=== PATIENT | female | born 1960 | race Caucasian/White ===

== ENCOUNTER 2017-10-13 18:00 | Emergency (ER) | payer MEDICARE, OTHER ==
--- NOTE | 2017-10-13 18:17 | ER Report ---
History and Physical Time Seen By MD: 18:12 Hx. of Stated Complaint: ]WITNESSED SEIZURE AT [facility],15 -45 SECONDS OF GRAND MAL SEIZURE. PT ALONE AND APPARENTLY FROM OOT. SHE IS POST ICTAL AND DOES NOT ANSWER ANY QUESTIONS. PT HIT HEAD ON FLKOOR AND HAS A GOOSE EGG OCCIPITALLY HPI/ROS CHIEF COMPLAINT: seizure, altered mental status HISTORY OF PRESENT ILLNESS: This is a 57 year old female. She had a witnessed seizure at [facility] today. EMS brought her here to the ER. She is moaning and complaining of headache. She has a hematoma on her occipital scalp with bleeding. She is nauseated and having vomiting.She is not able to communicate otherwise other than a few yes or no answers. She is able to follow some commands but not all. No other history at this time. Her arrived a little later and I was able to talk to him. He indicates that she has seizures every few years. They are planning on getting her into her neurologist upon return to [place]. She normally has anywhere from 30-120 minutes of confusion after a seizure, so her current state is not atypical for her after a seizure. REVIEW OF SYSTEMS: Unable to obtain otherwise. Allergies: Coded Allergies: Penicillins (Verified Allergy, Unknown, 10/13/17) Home Meds Reported Medications Aspirin/Acetaminophen/Caffeine (EXCEDRIN EXTRA STRENGTH CAPLET) 1 Each Tablet, 1 EACH PO PRN 10/13/17 Duloxetine Hcl (CYMBALTA) 20 Mg Capcr, PO QDAY, #5 CAP 10/13/17 Unable To Obtain Past Medical: Unable to Obtain/Update Reviewed Nurses Notes: Yes Constitutional Vital Sign - Last 24 Hours 10/13/17 10/13/17 10/13/17 10/13/17 18:00 18:02 18:04 18:09 Temp 98.8 Pulse ??? 93 Resp 20 B/P (MAP) 130/72 128/75 (92) Pulse Ox 84 89 O2 Delivery Room Air O2 Flow Rate 2.0 10/13/17 10/13/17 10/13/17 10/13/17 18:15 18:30 18:45 18:50 Pulse 83 93 79 61 Resp 7 8 10 24 B/P (MAP) 130/91 (104) Pulse Ox 97 10/13/17 10/13/17 10/13/17 10/13/17 20:10 20:25 20:30 20:40 Pulse 92 65 63 Resp 30 23 5 B/P (MAP) 152/86 (108) Pulse Ox 100 98 100 10/13/17 10/13/17 10/13/17 10/13/17 20:45 21:00 21:15 21:30 Pulse 67 ??? 75 ??? Resp 10 18 10 10 B/P (MAP) 147/84 (105) 131/84 (100) Pulse Ox 98 94 100 100 10/13/17 10/13/17 10/13/17 10/13/17 21:35 21:50 22:00 22:05 Pulse 85 82 71 Resp 19 14 23 B/P (MAP) 138/82 (100) Pulse Ox 100 100 100 10/13/17 10/13/17 10/13/17 10/13/17 22:14 22:19 22:25 22:30 Pulse 69 79 Resp 15 15 B/P (MAP) 138/79 (98) Pulse Ox 100 100 O2 Flow Rate 1.0 10/13/17 10/13/17 10/13/17 10/13/17 22:34 22:49 22:54 23:00 Pulse 73 80 78 Resp 26 13 13 B/P (MAP) 142/77 (98) Pulse Ox 100 10/13/17 23:09 Pulse 77 Resp 13 Physical Exam General Appearance: The patient is having some sedation and difficulty post- ictal, but is able to follow most commands, but unable to answer questions for me other than some brief yes or no questions. No immediate need for airway protection. Head: Hematoma with bleeding occipital scalp. Eyes: Pupils are equal, round. Reactive to light. No pallor, injection or icterus. Extraocular movements are intact. ENT: Mucous membranes are moist. Normal oral mucosa. Posterior oropharynx is normal. Normal tympanic membranes and canals. Neck: Supple and non tender. Respiratory: Lungs are clear to auscultation. Cardiovascular: Regular rate and rhythm. No murmurs, gallops or rubs. Normal capillary refill. No edema. Gastrointestinal: Abdomen is soft, with no apparent tenderness. Nondistended. Normal active bowel sounds. Neurological: Oriented to self only at this time. Unable to perform full neuro exam at this time. She is moving all extremities. No facial droop or other focal deficits noted. Skin: Warm and dry. Musculoskeletal: Extremities are nontender. No tenderness in palpation of the cervical, thoracic and lumbar spine. DIFFERENTIAL DIAGNOSIS: After history and physical exam, differential diagnosis was considered for a seizure including but not limited to electrolyte abnormality, alcohol withdrawal, medication noncompliance, head injury, and breakthrough seizure. Will evaluate for trauma associated with seizure as well, mainly looking at head and neck, but will do a segura-CT scan due to trauma. Medical Decision Making Data Points Result Diagram: 10/13/17 1750 10/13/17 175 Laboratory Hematology Test 10/13/17 17:50 Red Blood Count 4.04 M/uL (4.17-5.56) Mean Corpuscular Volume 96.5 fL (80.0-96.0) Mean Corpuscular Hemoglobin 33.8 pg (26.0-33.0) Mean Corpuscular Hemoglobin Concent 35.0 g/dL (32.0-36.0) Red Cell Distribution Width 13.9 % (11.5-14.5) Mean Platelet Volume 9.0 fL (7.2-11.1) Neutrophils (%) (Auto) 51.0 % (39.4-72.5) Lymphocytes (%) (Auto) 36.8 % (17.6-49.6) Monocytes (%) (Auto) 9.8 % (4.1-12.4) Eosinophils (%) (Auto) 1.7 % (0.4-6.7) Basophils (%) (Auto) 0.7 % (0.3-1.4) Nucleated RBC Relative Count (auto) 0.0 /100WBC Neutrophils # (Auto) 3.8 K/uL (2.0-7.4) Lymphocytes # (Auto) 2.8 K/uL (1.3-3.6) Monocytes # (Auto) 0.7 K/uL (0.3-1.0) Eosinophils # (Auto) 0.1 K/uL (0.0-0.5) Basophils # (Auto) 0.1 K/uL (0.0-0.1) Nucleated RBC Absolute Count (auto) 0.00 K/uL Prothrombin Time 12.9 seconds (12.0-14.4) Prothromb Time International Ratio 0.97 Activated Partial Thromboplast Time 26 seconds (23-35) Sodium Level 141 mmol/L (137-145) Potassium Level 2.7 mmol/L (3.5-5.0) Chloride Level 102 mmol/L (98-107) Carbon Dioxide Level 24 mmol/L (22-31) Blood Urea Nitrogen 5 mg/dl (7-18) Creatinine 0.70 mg/dl (0.52-1.04) Glomerular Filtration Rate Calc > 60.0 Random Glucose 72 mg/dl (75-110) Lactate 1.3 mmol/L (0.7-2.1) Calcium Level 9.6 mg/dl (8.4-10.2) Total Bilirubin 0.4 mg/dl (0.2-1.3) Aspartate Amino Transf (AST/SGOT) 45 U/L (0-35) Alanine Aminotransferase (ALT/SGPT) 46 U/L (0-56) Alkaline Phosphatase 67 U/L (0-126) Troponin I < 0.012 ng/ml Total Protein 7.4 gm/dl (6.3-8.2) Albumin 4.4 g/dl (3.5-5.0) Chemistry Test 10/13/17 17:50 White Blood Count 7.5 k/uL (4.5-11.0) Red Blood Count 4.04 M/uL (4.17-5.56) Hemoglobin 13.6 g/dL (12.0-16.0) Hematocrit 39.0 % (34.0-47.0) Mean Corpuscular Volume 96.5 fL (80.0-96.0) Mean Corpuscular Hemoglobin 33.8 pg (26.0-33.0) Mean Corpuscular Hemoglobin Concent 35.0 g/dL (32.0-36.0) Red Cell Distribution Width 13.9 % (11.5-14.5) Platelet Count 219 K/uL (150-450) Mean Platelet Volume 9.0 fL (7.2-11.1) Neutrophils (%) (Auto) 51.0 % (39.4-72.5) Lymphocytes (%) (Auto) 36.8 % (17.6-49.6) Monocytes (%) (Auto) 9.8 % (4.1-12.4) Eosinophils (%) (Auto) 1.7 % (0.4-6.7) Basophils (%) (Auto) 0.7 % (0.3-1.4) Nucleated RBC Relative Count (auto) 0.0 /100WBC Neutrophils # (Auto) 3.8 K/uL (2.0-7.4) Lymphocytes # (Auto) 2.8 K/uL (1.3-3.6) Monocytes # (Auto) 0.7 K/uL (0.3-1.0) Eosinophils # (Auto) 0.1 K/uL (0.0-0.5) Basophils # (Auto) 0.1 K/uL (0.0-0.1) Nucleated RBC Absolute Count (auto) 0.00 K/uL Prothrombin Time 12.9 seconds (12.0-14.4) Prothromb Time International Ratio 0.97 Activated Partial Thromboplast Time 26 seconds (23-35) Glomerular Filtration Rate Calc > 60.0 Lactate 1.3 mmol/L (0.7-2.1) Calcium Level 9.6 mg/dl (8.4-10.2) Total Bilirubin 0.4 mg/dl (0.2-1.3) Aspartate Amino Transf (AST/SGOT) 45 U/L (0-35) Alanine Aminotransferase (ALT/SGPT) 46 U/L (0-56) Alkaline Phosphatase 67 U/L (0-126) Troponin I < 0.012 ng/ml Total Protein 7.4 gm/dl (6.3-8.2) Albumin 4.4 g/dl (3.5-5.0) Coagulation Test 10/13/17 17:50 Prothrombin Time 12.9 seconds Prothromb Time International Ratio 0.97 Activated Partial Thromboplast Time 26 seconds EKG/Imaging EKG Interpretation 12 lead EKG: Rhythm: normal sinus rhythm, rate 89 [place]: normal QRS: normal ST segments: Nonspecific changes, no ST elevation or depression noted Imaging CT scan(s) obtained: non-contrast head, non-contrast cervical spine, chest/ abdomen/pelvis with IV contrast, thoracic spine reconstruction, lumbar spine reconstruction. Results: Head with evidence of subarachnoid bleed on the left without mass effect. No evidence of fracture. Cervical spine without evidence of fracture. Chest/abdomen/pelvis and the thoracic spines readings are pending at this time. The study was read by the radiologist and was discussed with me. I viewed the images myself on the PACS system. ED Course/Re-evaluation Clinical Indication for ER IV: Hydration, IV Access ED Course On re-evaluation after CT scans were performed, the patient is doing a little better. Still with nausea and headache. Difficulty in CT scan with nausea upon lying flat, so further nausea medicines were given including Zofran 4mg IV and then Reglan 10mg IV. She still has headache, and Fentanyl 50mcg IV was given. She is more alert and able to answer questions better. She still is not back to baseline according to her , but is able to answer questions a little better now. Labs show a low potassium, so a dose of 20mEq KCl was given as a rider in addition to a liter of normal saline. CT scans done, but delay in reading. My read shows what appears to be a subarachnoid bleed on the left. Was able to discuss this with radiology and verified this. She is having continued headache, but the nausea is better. She was given a second dose of Fentanyl 50mcg IV. Called and discussed the case with Dr. Miller and Dr. Stanley (trauma and neurosurgery) at [facility]. Dr. Stanley, neurosurgery was able to visualize the scan and was concerned on the appearance and recommended transfer for neurovascular care in [place]. Called and spoke to the trauma surgeon at [facility], Dr. White, who accepted the patient. Decision to Disposition Date: October 13, 2017 Decision to Disposition Time: 22:22 Transfer Facility Patient was transferred to [facility] via helicopter. The transfer was emergent, and was required because the capabilities of the receiving hospital. Consent for transfer was obtained from the patient and her Dr. White, trauma surgeon, has accepted the patient for an ER to ER transfer. See EMTALA for transfer orders. Depart Departure Latest Vital Signs Vital Signs Date Time Temp Pulse Resp B/P (MAP) Pulse Ox O2 Delivery O2 Flow Rate FiO2 10/13/17 23:09 77 13 10/13/17 23:00 142/77 (98) 10/13/17 22:34 100 10/13/17 22:25 1.0 10/13/17 18:02 98.8 Room Air Impression: Primary Impression: Subarachnoid hemorrhage Additional Impression: Seizure Condition: Condition Unchanged Disposition: XFER TO [facility] Problem Qualifiers KISHORE DOWNEY MD October 13, 2017 18:17
[2017-10-13] MEDS ORDERED: ONDANSETRON 4 MG/2 ML VIAL IVP ONE (18:30)
[2017-10-13] MEDS ORDERED: NS(*) 0.9% 1000 ML BAG 1,000 ML IV ONE (18:30)
[2017-10-13 18:33] LABS: PLATELET COUNT, AUTOMATED 219 K/uL (150-450)
--- NOTE | 2017-10-13 18:33 | EKG ---
FACILITY: [facility] PATIENT NAME: GRAEME BARAJAS : [id number] MR: [id number] V: [id number] EXAM DATE: ORDERING PHYSICIAN: KISHORE DOWNEY TECHNOLOGIST: LIZA Montoya Reason : SEIZURE Blood Pressure : / mmHG Vent. Rate : 089 BPM Atrial Rate : 089 BPM P-R Int : 192 ms QRS Dur : 116 ms QT Int : 386 ms P-R-T Axes : 102 -22 099 degrees QTc Int : 469 ms Normal sinus rhythm Anteroseptal infarct , age undetermined ST and T wave abnormality, consider lateral ischemia Abnormal ECG No previous ECGs available Confirmed by CADEN WAGNER ([id number]) on 10/14/2017 1:04:00 PM Referred By: NASREEN Confirmed By:CADEN WAGNER
[2017-10-13 18:39] LABS: INR 0.97
[2017-10-13] MEDS ORDERED: KCL (*) 20 MEQ/100 ML PREMIX 100 ML IV ONE (18:45)
[2017-10-13] MEDS ORDERED: IOPAMIDOL 76% 75 ML INFUS BTL 75 ML ONE (18:59)
[2017-10-13] MEDS ORDERED: ONDANSETRON 4 MG/2 ML VIAL ONE (19:03)
[2017-10-13] MEDS ORDERED: METOCLOPRAMIDE 10 MG/2 ML SDV IVP ONE (19:40)
[2017-10-13] MEDS ORDERED: fentaNYL CITR 100 MCG/2 ML AMP IVP ONE ×2 (20:45→21:50)
--- NOTE | 2017-10-13 22:30 | RADIOLOGY IMAGING REPORT ---
[place] [facility] [place] NAME: Juju Suh : 1960 MR: [id number] V: [id number] EXAM DATE: ORDERING PHYSICIAN: KSIHORE DOWNEY TECHNOLOGIST: Location: [facility] Patient: Juju Suh : 1960 Visit/Account:[id number] Date of Sevice: 10/13/2017 CT Head without contrast and CT Cervical spine: Indication: Seizure, fall, altered mental status. Head laceration. Comparison: None available Technique: CT head: Axial CT images were obtained through the brain from the skull base to the verte x without administration of IV contrast. Reformatted coronal and sagittal images were also obtained. Technique: CT cervical spine: Axial CT imaging of the cervical spine was performed. 2-D sagittal and coronal CT reformats were also obtained. One of the following dose optimization techniques was utilized in the performance of this exam: Autom ated exposure control; adjustment of the mA and/or kV according to the patient's size; or use of an i terative reconstruction technique. Specific details can be referenced in the facility's radiology C T exam operational policy. FINDINGS: CT head: Acute subarachnoid blood is seen throughout the sulci of the left cerebral hemisphere extending along the anterior falx and the lateral surface. This extends into the left-sided the cistern at the level of the debra with small amount of blood in the subarachnoid space posterior to the upper cervical cor d below the cerebellum on the right side. No definite subarachnoid blood is seen in the right sulci. There is no mass effect, midline shift or other indication of bleed. No hydrocephalus. Velazquez/white mat ter differentiation appears normal. Bony structures show no fractures or lesions. Large subcutaneous hematoma. Posterior right scalp. Sinuses and mastoids visualized are clear. CT cervical spine: The vertebral bodies are aligned. No fracture or facet dislocation. Mild osteopenia. No bony lesions. Mild degenerative changes are present including disc space, osteophytes and facet arthropathy. No emmanuel ny canal stenosis. Multilevel neural foramina narrowing is present. The endplates are maintained. No obvious disc herniation. Prevertebral soft tissues and strong soft tissues are unremarkable. Lung api mila are clear. IMPRESSION: 1. Acute subarachnoid hemorrhage in the left cerebral hemisphere extending into the cistern and into the spinal canal region inferior to the cerebellum. No appreciable mass effect or midline shift. No i ndication of skull fracture. Large hematoma in the posterior right scalp. 2. No acute osseous or acute alignment abnormality of the cervical spine. I called report to KISHORE DOWNEY at 10/13/2017 9:33 PM. Report Dictated By: Du Betancourt at 10/13/2017 9:21 PM Report E-Signed By: Du Betancourt at 10/13/2017 9:33 PM WSN:[id number]
--- NOTE | 2017-10-13 22:30 | RADIOLOGY IMAGING REPORT ---
FACILITY: [facility] PATIENT NAME: Juju Suh : 1960 MR: [id number] V: [id number] EXAM DATE: ORDERING PHYSICIAN: KISHORE DOWNEY TECHNOLOGIST: Location: [facility] Patient: Juju Suh : 1960 Visit/Account:[id number] Date of Sevice: 10/13/2017 CT Head without contrast and CT Cervical spine: Indication: Seizure, fall, altered mental status. Head laceration. Comparison: None available Technique: CT head: Axial CT images were obtained through the brain from the skull base to the verte x without administration of IV contrast. Reformatted coronal and sagittal images were also obtained. Technique: CT cervical spine: Axial CT imaging of the cervical spine was performed. 2-D sagittal and coronal CT reformats were also obtained. One of the following dose optimization techniques was utilized in the performance of this exam: Autom ated exposure control; adjustment of the mA and/or kV according to the patient's size; or use of an i terative reconstruction technique. Specific details can be referenced in the facility's radiology C T exam operational policy. FINDINGS: CT head: Acute subarachnoid blood is seen throughout the sulci of the left cerebral hemisphere extending along the anterior falx and the lateral surface. This extends into the left-sided the cistern at the level of the debra with small amount of blood in the subarachnoid space posterior to the upper cervical cor d below the cerebellum on the right side. No definite subarachnoid blood is seen in the right sulci. There is no mass effect, midline shift or other indication of bleed. No hydrocephalus. Velazquez/white mat ter differentiation appears normal. Bony structures show no fractures or lesions. Large subcutaneous hematoma. Posterior right scalp. Sinuses and mastoids visualized are clear. CT cervical spine: The vertebral bodies are aligned. No fracture or facet dislocation. Mild osteopenia. No bony lesions. Mild degenerative changes are present including disc space, osteophytes and facet arthropathy. No emmanuel ny canal stenosis. Multilevel neural foramina narrowing is present. The endplates are maintained. No obvious disc herniation. Prevertebral soft tissues and strong soft tissues are unremarkable. Lung api mila are clear. IMPRESSION: 1. Acute subarachnoid hemorrhage in the left cerebral hemisphere extending into the cistern and into the spinal canal region inferior to the cerebellum. No appreciable mass effect or midline shift. No i ndication of skull fracture. Large hematoma in the posterior right scalp. 2. No acute osseous or acute alignment abnormality of the cervical spine. I called report to KISHORE DOWNEY at 10/13/2017 9:33 PM. Report Dictated By: Du Betancourt at 10/13/2017 9:21 PM Report E-Signed By: Du Betancourt at 10/13/2017 9:33 PM WSN:[id number]
--- NOTE | 2017-10-13 22:31 | RADIOLOGY IMAGING REPORT ---
[place] [facility] [place] NAME: Juju Suh : 1960 MR: [id number] V: [id number] EXAM DATE: ORDERING PHYSICIAN: KISHORE DOWNEY TECHNOLOGIST: Location: [facility] Patient: Juju Suh : 1960 Visit/Account:[id number] Date of Sevice: 10/13/2017 EXAMINATION: CT chest with IV contrast CT abdomen with IV contrast CT pelvis with IV contrast Reconstruction images of the thoracic and lumbar spine. HISTORY: Seizure and fall. TECHNIQUE: Spiral scan was obtained through the chest, abdomen and pelvis during injection of nonio albino iodinated intravenous contrast. Sagittal and coronal reformatted images are also submitted. One of the following dose optimization techniques was utilized in the performance of this exam: Autom ated exposure control; adjustment of the mA and/or kV according to the patient's size; or use of an i terative reconstruction technique. Specific details can be referenced in the facility's radiology C T exam operational policy. CONTRAST: 75 mL of IV [id number]. COMPARISON: None. FINDINGS: CT THORAX: Lungs / pleura: Lungs show no focal consolidation, pleural effusion or pneumothorax. The right upper lobe does show a couple nodules, 4 mm and 3 mm on image #28 and 31 on series 4. No other discrete no dules. No focal interstitial opacities. Airways are clear. Mediastinum / duane: No abnormal density or enlarged lymph nodes. Heart / pericardium: Normal size. Minimal pericardial fluid. Vessels: Aorta shows no indication of aneurysm or dissection. The pulmonary arteries are grossly nor mal. Musculoskeletal / Body wall: The vertebral bodies are aligned and show no indication of compression fractures. Mild degenerative changes. No aggressive bony lesions. Possible hemangioma in the T6 verte bral body. The sternum is intact. The ribs show no discrete or displaced rib fractures. A couple old right rib fractures. No aggressive bony lesions. Chest wall shows no enlarged axillary lymph nodes or masses. The bilateral breast implants appear intact. CT ABDOMEN AND PELVIS: The liver, gallbladder, biliary system, pancreas, spleen, adrenal glands and kidneys are within elliot l limits without discrete focal abnormality. Pelvic structures: Negative. Bowel: The visualized gastrointestinal tract, including the appendix, within normal limits but the st omach is unremarkable. Peritoneum / retroperitoneum / mesenteries: No free air, fluid collections or areas of inflammation. Tiny bit of free fluid in pelvis nonspecific but most likely physiologic. Vessels: Negative. Musculoskeletal / Body wall: No indication of acute fracture. The vertebral bodies show no compressio ns. Mild degenerative change seen lower lumbar spine. No aggressive bony lesions. Lymph node assessment: Negative. Reconstructed Images of the Thoracic and Lumbar Spine: The vertebral bodies of the thoracic and lumbar spine are aligned. No compression fractures or aggres sive bony lesions. Possible hemangioma in the T6 vertebral body and the T4 vertebral body. The thorac ic spine does show mild degenerative anterior osteophytes without other posterior degenerative change s. No indication of bony canal stenosis or appreciable foraminal narrowing. The disks show no obvious herniations. The endplates are maintained. Small calcification posterior to the disc at T6-7 without significant sequelae. The lumbar spine shows mild degenerative changes at L5-S1 including disc space narrowing, endplate changes, osteophytes and facet arthropathy. Mild broad-based disc bulge. No appr eciable or significant canal stenosis. Mild neural foramina narrowing bilaterally at this level. The remaining vertebral bodies show no significant degenerative changes or appreciable disc herniations w ith possible mild broad-based disc bulge at L4-5 without significant sequelae. The endplates are main tained. IMPRESSION: 1. No indication of acute abnormality or traumatic injury to the chest, abdomen or pelvis. 2. The thoraci and lumbar spine shows no acute abnormality with mild degenerative changes as describ ed above. 3. Minimal pericardial fluid, nonspecific at this time.4. Right lung nodules, largest 4 mm. These are nonspecific and could be postinflammatory. Suggest follow-up per Fleischner guidelines described [place]. FLEISCHNER SOCIETY FOLLOW-UP GUIDELINES FOR NEWLY DETECTED INCIDENTAL NODULES IN PERSONS 35 YEARS OF AGE OR OLDER. *THESE RECOMMENDATIONS DO NOT APPLY TO LUNG CANCER SCREENING, PATIENTS WITH IMMUNOSUPPRESSION , OR PA TIENTS WITH KNOWN PRIMARY MALIGNANCY. MULTIPLE SOLID NODULES If largest nodule size is less than 6 mm: Low risk patient - no follow up needed High risk patient - Optional CT at 12 months. If largest nodule size is 6-8 mm: Low risk patient - follow up CT at 3-6 months, then consider CT at 18-24 months if no change. High risk patient - follow up CT at 3-6 months, then CT at 18-24 months if no change. If largest nodule size is greater than 8 mm: Low risk patient - follow up CT at 3-6 months, then consider CT at 18-24 months High risk patient - follow up CT at 3-6 months, then at 18-24 months LOW RISK PATIENT: Minimal or absent history of tobacco use and of other known risk factors. HIGH RISK PATIENT: Tobacco use, family history of lung cancer, upper pulmonary lobe location of nodul e, presence of emphysema, pulmonary fibrosis, older age. Estrella H, Iza DP, Cash AMADO, et al. Guidelines for Management of Incidental Pulmonary Nodules Dete cted on CT Images: From the Fleischner Society 2017. Radiology. Report Dictated By: Du Betancourt at 10/13/2017 9:35 PM Report E-Signed By: Du Betancourt at 10/13/2017 9:58 PM WSN:[id number]
--- NOTE | 2017-10-13 22:31 | RADIOLOGY IMAGING REPORT ---
FACILITY: [facility] [place] PATIENT NAME: Juju Suh : 1960 MR: [id number] V: [id number] EXAM DATE: ORDERING PHYSICIAN: KISHORE DOWNEY TECHNOLOGIST: [place] [facility] [place]ju [place]h : 1960 Visit/Account:[id number] Date of Sevice: 10/13/2017 EXAMINATION: CT chest with IV contrast CT abdomen with IV contrast CT pelvis with IV contrast Reconstruction images of the thoracic and lumbar spine. HISTORY: Seizure and fall. TECHNIQUE: Spiral scan was obtained through the chest, abdomen and pelvis during injection of nonio albino iodinated intravenous contrast. Sagittal and coronal reformatted images are also submitted. One of the following dose optimization techniques was utilized in the performance of this exam: Autom ated exposure control; adjustment of the mA and/or kV according to the patient's size; or use of an i terative reconstruction technique. Specific details can be referenced in the facility's radiology C T exam operational policy. CONTRAST: 75 mL of IV [id number]. COMPARISON: None. FINDINGS: CT THORAX: Lungs / pleura: Lungs show no focal consolidation, pleural effusion or pneumothorax. The right upper lobe does show a couple nodules, 4 mm and 3 mm on image #28 and 31 on series 4. No other discrete no dules. No focal interstitial opacities. Airways are clear. Mediastinum / duane: No abnormal density or enlarged lymph nodes. Heart / pericardium: Normal size. Minimal pericardial fluid. Vessels: Aorta shows no indication of aneurysm or dissection. The pulmonary arteries are grossly nor mal. Musculoskeletal / Body wall: The vertebral bodies are aligned and show no indication of compression fractures. Mild degenerative changes. No aggressive bony lesions. Possible hemangioma in the T6 verte bral body. The sternum is intact. The ribs show no discrete or displaced rib fractures. A couple old right rib fractures. No aggressive bony lesions. Chest wall shows no enlarged axillary lymph nodes or masses. The bilateral breast implants appear intact. CT ABDOMEN AND PELVIS: The liver, gallbladder, biliary system, pancreas, spleen, adrenal glands and kidneys are within elliot l limits without discrete focal abnormality. Pelvic structures: Negative. Bowel: The visualized gastrointestinal tract, including the appendix, within normal limits but the st omach is unremarkable. Peritoneum / retroperitoneum / mesenteries: No free air, fluid collections or areas of inflammation. Tiny bit of free fluid in pelvis nonspecific but most likely physiologic. Vessels: Negative. Musculoskeletal / Body wall: No indication of acute fracture. The vertebral bodies show no compressio ns. Mild degenerative change seen lower lumbar spine. No aggressive bony lesions. Lymph node assessment: Negative. Reconstructed Images of the Thoracic and Lumbar Spine: The vertebral bodies of the thoracic and lumbar spine are aligned. No compression fractures or aggres sive bony lesions. Possible hemangioma in the T6 vertebral body and the T4 vertebral body. The thorac ic spine does show mild degenerative anterior osteophytes without other posterior degenerative change s. No indication of bony canal stenosis or appreciable foraminal narrowing. The disks show no obvious herniations. The endplates are maintained. Small calcification posterior to the disc at T6-7 without significant sequelae. The lumbar spine shows mild degenerative changes at L5-S1 including disc space narrowing, endplate changes, osteophytes and facet arthropathy. Mild broad-based disc bulge. No appr eciable or significant canal stenosis. Mild neural foramina narrowing bilaterally at this level. The remaining vertebral bodies show no significant degenerative changes or appreciable disc herniations w ith possible mild broad-based disc bulge at L4-5 without significant sequelae. The endplates are main tained. IMPRESSION: 1. No indication of acute abnormality or traumatic injury to the chest, abdomen or pelvis. 2. The thoraci and lumbar spine shows no acute abnormality with mild degenerative changes as describ ed above. 3. Minimal pericardial fluid, nonspecific at this time.4. Right lung nodules, largest 4 mm. These are nonspecific and could be postinflammatory. Suggest follow-up per Fleischner guidelines described [place]. FLEISCHNER SOCIETY FOLLOW-UP GUIDELINES FOR NEWLY DETECTED INCIDENTAL NODULES IN PERSONS 35 YEARS OF AGE OR OLDER. *THESE RECOMMENDATIONS DO NOT APPLY TO LUNG CANCER SCREENING, PATIENTS WITH IMMUNOSUPPRESSION , OR PA TIENTS WITH KNOWN PRIMARY MALIGNANCY. MULTIPLE SOLID NODULES If largest nodule size is less than 6 mm: Low risk patient - no follow up needed High risk patient - Optional CT at 12 months. If largest nodule size is 6-8 mm: Low risk patient - follow up CT at 3-6 months, then consider CT at 18-24 months if no change. High risk patient - follow up CT at 3-6 months, then CT at 18-24 months if no change. If largest nodule size is greater than 8 mm: Low risk patient - follow up CT at 3-6 months, then consider CT at 18-24 months High risk patient - follow up CT at 3-6 months, then at 18-24 months LOW RISK PATIENT: Minimal or absent history of tobacco use and of other known risk factors. HIGH RISK PATIENT: Tobacco use, family history of lung cancer, upper pulmonary lobe location of nodul e, presence of emphysema, pulmonary fibrosis, older age. Estrella H, Iza DP, Cash AMADO, et al. Guidelines for Management of Incidental Pulmonary Nodules Dete cted on CT Images: From the Fleischner Society 2017. Radiology. Report Dictated By: Du Betancourt at 10/13/2017 9:35 PM Report E-Signed By: Du Betancourt at 10/13/2017 9:58 PM WSN:[id number]
--- NOTE | 2017-10-13 22:32 | RADIOLOGY IMAGING REPORT ---
FACILITY: [facility] PATIENT NAME: Juju Suh : 1960 MR: [id number] V: [id number] EXAM DATE: ORDERING PHYSICIAN: KISHORE DOWNEY TECHNOLOGIST: Location: [facility] [place] Patient: Juju Suh : 1960 Visit/Account:[id number] Date of Sevice: 10/13/2017 CHEST SINGLE AP Indication: Seizure.. Comparison: None available Findings: Cardiomediastinal silhouette and pulmonary vessels within normal limits. There is no focal infiltrate or lobar consolidation. No pneumothorax or pleural effusion. No nodule. Upper abdomen is unremarkable. No acute bony abnormality. There does appear to be some rem odeling to the proximal right humerus suggests of previous fracture. IMPRESSION: 1. No acute cardiopulmonary process. 2. There appears to be some remodeling to the proximal right humerus suggests of previous fracture. I f patient is patent from the surgery a follow-up x-ray of the humerus can be obtained. Report Dictated By: Du Betancourt at 10/13/2017 9:59 PM Report E-Signed By: Du Betancourt at 10/13/2017 10:01 PM WSN:[id number]
[2017-10-13] MEDS ORDERED: ASPI1TAB35 PO (22:53)
[2017-10-13] MEDS ORDERED: DUL20 PO (22:53)
[2017-10-13 23:00] VITALS: BP 142/77
== END 2017-10-13 23:50 | disposition short-term general hospital (02) ==
LOC: ER 18:08
DX: I60.9 Nontraumatic subarachnoid hemorrhage, unspecified (principal); R56.9 Unspecified convulsions
CPT/HCPCS: 36415; 70450; 71045; 71260; 72125; 72129; 72132; 74177; 83605; 84484; 85025; 85610; 85730; 93005; 96361; 96365; 96366; 96375; 96376; 99285; J2405; J2765; J3010; J3480; J7030; Q9967; 82040; 82247; 82310; 82374; 82435; 82565; 82947; 84075; 84132; 84155; 84295; 84450; 84460; 84520

== ENCOUNTER → 2017-10-13 | Outpatient (REF) ==
[~2017-10-13] MED LIST: ASPI1TAB35 PO; DUL20 PO
== END ==
LOC: AMB 22:32
PROVIDERS: ATTEND Nurse Practitioner
DX: Z02.9 Encounter for administrative examinations, unspecified (principal)

== ENCOUNTER → 2017-10-13 | Outpatient (CLI) | payer MEDICARE, OTHER | LOC: AMB 17:40 | PROVIDERS: ATTEND Nurse Practitioner | DX: R56.9 Unspecified convulsions (principal); S00.03XA Contusion of scalp, initial encounter; R53.1 Weakness | CPT/HCPCS: A0425; A0427 ==